=== PATIENT | female | born 1935 | race Caucasian/White ===

== ENCOUNTER → 2018-03-18 15:05 | Outpatient (CLI) | payer MEDICARE, OTHER, SELFPAY ==
--- NOTE | 2018-03-18 | DI.RAD.S_ITS ---
PROCEDURE: XR WRIST LT MIN 3V INDICATIONS: 82 year-old female with left wrist pain after ground level fall. TECHNIQUE: 4 views of the wrist were acquired. COMPARISON: None. FINDINGS: Bones: No fractures or dislocations. There is moderate first carpometacarpal joint degeneration. No suspicious bony lesions. Scaphoid view: Scaphoid appears intact. Soft tissues: There is mild radiocarpal compartment chondrocalcinosis. IMPRESSION: 1. No acute bony injuries of the left wrist. 2. Moderate first carpometacarpal joint degeneration. 3. Mild left wrist CPPD deposition disease. Dictated by: Damon Heck M.D. on 03/18/2018 at 16:30 Approved by: Damon Heck M.D. on 03/18/2018 at 16:34
== END ==
PROVIDERS: Family Provider Family Medicine; PCP Family Medicine; Visit Provider Family Medicine
DX: M18.12 Unilateral primary osteoarthritis of first carpometacarpal joint, left hand (principal); M11.232 Other chondrocalcinosis, left wrist; M25.532 Pain in left wrist
CPT/HCPCS: 73110